=== PATIENT | female | born 1990 | race Caucasian/White ===

== ENCOUNTER 2018-05-13 20:28 | Emergency (ER) | payer SELFPAY ==
[~2018-05-13] VITALS: Ht 160 cm; Wt 68.5 kg
[2018-05-13 20:43] VITALS: BP 133/63
--- NOTE | 2018-05-13 20:48 | NUR ---
PT PROVIDING URINE. AMBULATED TO BED 4 WITH VSS.
--- NOTE | 2018-05-13 21:09 | NUR ---
DR TANNER AT BEDSIDE EVALUATING PT.
--- NOTE | 2018-05-13 21:11 | NUR ---
PT BIB SELF FOR VAGINAL BLEEDING FOR 1 MONTH. PT STATES BLEEDING HAS BEEN SPOTTING TO HEAVIER BLEEDING FOR PAST MONTH. PT IS AT THIS TIME. PT SITTING IN BED, VSS, PENDING LAB WORK AND US.
[2018-05-13 21:23] LABS: BASOPHILS % (AUTO) 0.3 % (0.0-2.0); EOSINOPHILS # (AUTO) 0.2 K/uL (0-0.4); EOSINOPHILS % (AUTO) 1.7 % (0.0-4.0); HEMATOCRIT 33.5 % (36-48); HEMOGLOBIN 11.4 g/dL (12.0-16.0); LYMPHOCYTES % (AUTO) 33.4 % (20.5-51.1); MEAN CORPUSCULAR HEMOGLOBIN 31 pg (27-31); MEAN CORPUSCULAR HGB CONC 34 g/dL (33-37); MONOCYTES # (AUTO) 0.6 K/uL (0.8-1.0); MONOCYTES % (AUTO) 6.9 % (1.7-9.3); NEUTROPHILS # (AUTO) 5.2 K/uL (1.8-7.7); NEUTROPHILS % (AUTO) 57.7 % (42.2-75.2); PLATELET COUNT (AUTO) 244 K/uL (140-450); RED BLOOD CELL COUNT(AUTO) 3.64 MIL/uL (4.20-5.40); RED CELL DISTRIBUTION WIDTH 13.6 % (11.6-13.7)
[2018-05-13 22:07] LABS: BILIRUBIN,URINE NEGATIVE (NEGATIVE); BLOOD, URINE LARGE (NEGATIVE); LEUKOCYTE ESTERASE ,URINE NEGATIVE (NEGATIVE); NITRITE, URINE NEGATIVE (NEGATIVE); UGLUCOSE NEGATIVE (NEGATIVE)
[2018-05-13 22:08] LABS: APPEARANCE,URINE BLOODY (CLEAR); COLOR,URINE RED (YELLOW); RBC,URINE TOO NUMEROUS TO COUN /HPF (0-5); WBC,URINE NONE SEEN /HPF (0-5)
--- NOTE | 2018-05-13 22:32 | NUR ---
MIRA PIPER AT BEDSIDE FOR RE-EVAL
[2018-05-13 22:47] VITALS: BP 116/63
--- NOTE | 2018-05-13 22:47 | NUR ---
Patient discharged with v/s stable. Written and verbal after care instructions given and explained. Patient verbalized understanding. Ambulatory with steady gait. All questions addressed prior to discharge. Advised to follow up with PMD.
--- NOTE | 2018-05-13 23:40 | NUR ---
ON RAD CALLED WITH U/S REPORT. DR HALL ASKED FOR PT TO COME BACK TO ER FOR RE-EVAL AND ADMITED TO [facility]. PT CALLED [facility] " I WILL BE COME BACK NOW."
== END 2018-05-13 22:47 | disposition home or self-care (01) ==
LOC: MED 20:28
DX: O03.9 Complete or unspecified spontaneous abortion without complication (principal)
CPT/HCPCS: 36415; 76817; 81001; 81025; 84702; 85025; 86900; 86901; 99284; Q0092

== ENCOUNTER 2018-05-13 23:54 | Emergency (ER) | payer SELFPAY ==
[~2018-05-13] VITALS: Ht 154.9 cm; Wt 65.8 kg
[2018-05-13 23:55] VITALS: BP 102/53
--- NOTE | 2018-05-13 23:55 | NUR ---
PT AMBULATED TO BED 1 WITH VSS.
--- NOTE | 2018-05-14 | NUR ---
PT RETURNS TO ER PER MD REQUEST, BECAUSE US RESULTS. PT HAS BEEN BLEEDING FOR 1 MONTH , BLEEDING CONTROLLED, VSS, NO CHANGES IN PT S/S SINCE LEAVING ER EARLIER. PT IS AMBULATORY, AT BEDSIDE, PT POSITIONED TO COMFORT. NO PMH
[2018-05-14] MEDS ORDERED: ONDANSETRON 4 MG/2 ML VIAL IVP ONE (00:25)
[2018-05-14] MEDS ORDERED: MORPHINE SULFATE 4 MG/ML SYR IVP ONE (00:25)
[2018-05-14] MEDS ORDERED: MORPHINE SULFATE 2 MG/ML SYR ONE (00:34)
--- NOTE | 2018-05-14 02:36 | NUR ---
PT IN BED SLEEPING, VSS, WILL CONTINUE TO MONITOR.
--- NOTE | 2018-05-14 04:16 | NUR ---
PT IN BED SLEEPING, EASILY AROUSABLE , VSS.
--- NOTE | 2018-05-14 05:00 | NUR ---
PT IN BED SLEEPING, VSS.
[2018-05-14] MEDS ORDERED: ACETAMINOPHEN EXTRA STRENGTH 500 MG TAB PO ONE (05:50)
--- NOTE | 2018-05-14 06:21 | NUR ---
Patient discharged with v/s stable. Written and verbal after care instructions given and explained. Patient alert, oriented and verbalized understanding of instructions. Ambulatory with steady gait. All questions addressed prior to discharge. ID band removed. Patient advised to follow up with PMD. Rx of NORCO, CIPRO given. Patient educated on indication of medication including possible reaction and side effects. Opportunity to ask questions provided and answered.
[2018-05-14 06:22] VITALS: BP 95/50
== END 2018-05-14 06:22 | disposition home or self-care (01) ==
LOC: MED 23:54
DX: O46.8X9 Other antepartum hemorrhage, unspecified trimester (principal)
CPT/HCPCS: 96374; 96375; 99283; J2270; J2405

== ENCOUNTER 2021-08-10 11:56 | Emergency (ER) | payer MEDICAID, OTHER ==
[~2021-08-10] VITALS: Ht 154.9 cm; Wt 72.6 kg
[2021-08-10 12:06] VITALS: BP 129/85
[2021-08-10] MEDS ORDERED: KETOROLAC 30 MG/ML VIAL IM ONE (12:40)
[2021-08-10] MEDS ORDERED: NAPR-54 PO (12:41)
--- NOTE | 2021-08-10 12:56 | NUR ---
31 Y/O FEMALE C/O R WRIST PAIN XTODAY AT WORK. PT REPORTS 8/10 PAIN, NONRADIATING. PT WORKS IN FACTORY AND USES REPETITIVE HAND MOVEMENTS. DENIES ANY SPECIFIC INJURIES/FALLS. PT DENIES TAKING ANYTHING FOR PAIN. PT REPORTS NUMBNESS/TINGLING. PT HAS FULL SENSATION IN HAND/WRIST/ARM, CAP REFILL <3 SECONDS, RADIAL PULSES +2 EQUAL BILATERALLY. NO OBVIOUS DEFORMITY NOTED. PT A/O X4 WITH EVEN AND UNLABORED RESPIRATIONS MEDHX: CARPAL TUNNEL NKA
--- NOTE | 2021-08-10 13:07 | NUR ---
Patient discharged with v/s stable. Written and verbal after care instructions ABOUT CARPAL TUNNEL SYNDROME given and explained. Patient alert, oriented and verbalized understanding of instructions. Ambulatory with steady gait. All questions addressed prior to discharge. ID band removed. Patient advised to follow up with PMD. Rx of NAPROXEN given. Patient educated on indication of medication including possible reaction and side effects. Opportunity to ask questions provided and answered.
== END 2021-08-10 13:07 | disposition home or self-care (01) ==
LOC: MED 11:56
DX: G56.00 Carpal tunnel syndrome, unspecified upper limb (principal)
CPT/HCPCS: 81025; 96372; 99283; J1885